=== PATIENT | female | born 1940 | race Caucasian/White ===

== ENCOUNTER 2016-11-02 16:23 | Outpatient (CLI) | payer MEDICARE, OTHER ==
[2016-02-26 04:58] VITALS: BP 104/52
== END 2016-11-02 16:24 ==
LOC: LABRHC 16:23
PROVIDERS: ATTEND Family Medicine
DX: R30.0 Dysuria (principal)
CPT/HCPCS: 87088

== ENCOUNTER 2016-11-16 08:21 | Outpatient (CLI) | payer MEDICARE, OTHER ==
[2016-02-26 04:58] VITALS: BP 104/52
== END 2016-11-16 08:30 ==
LOC: OUT 08:21
PROVIDERS: ATTEND General Practice
DX: N32.81 Overactive bladder (principal)
CPT/HCPCS: G0463

== ENCOUNTER 2016-11-30 08:39 | Outpatient (CLI) | payer MEDICARE, OTHER ==
[2016-02-26 04:58] VITALS: BP 104/52
== END 2016-11-30 08:40 ==
LOC: OUT 08:39
PROVIDERS: ATTEND General Practice
DX: N32.81 Overactive bladder (principal)
CPT/HCPCS: G0463

== ENCOUNTER 2017-01-01 10:30 | Emergency (ER) | payer MEDICARE, OTHER ==
--- NOTE | 2017-01-01 10:47 | ED Physician Documentation ---
Upper Extremity Problem - HISTORIAN Historian: patient - HPI Chief Complaint: Upper Extremity Injury Location: L shoulder, L arm Onset: hours (0200) Timing: still present, better Recent Injury: No Where: home Severity: moderate Associated Symptoms: denies: fever, chills, sweating Exacerbated By: other (movement, eternal rotation, abd) Further Comments: yes (Patient lost her balance in bathroom at about 0200 this AM, fell and hit her upper arm against the door. No LOC noted. Has been having some pain in the arm since that time. No echchymosis or swelling noted.) - ROS CONST: no problems - PAST HX Past History: other (DM type 2, s/pCVA, Seizure disorder, PVD, hyperlipidemia, ) Surgeries/Procedures: other (fundiplasty, AP b;ader reapir, BERNY) Allergies/Adverse Reactions: Allergies Allergy/AdvReac Type Severity Reaction Status Date / Time Sulfa (Sulfonamide Allergy Unknown Localized Verified 01/01/17 10:45 Antibiotics) Redness guaifenesin [From Entex LA] Allergy Verified 01/01/17 10:45 phenylephrine HCl Allergy Verified 01/01/17 10:45 [From Entex LA] phenylpropanolamine HCl Allergy Verified 01/01/17 10:45 [From Entex LA] Home Medications: Ambulatory Orders Medication Instructions Recorded Cholecalciferol [Vitamin D-3] 1,000 unit PO QD 04/27/14 Docusate Sodium [Colace] 100 mg PO BID 02/16/16 Pantoprazole Sodium [Protonix] 1 tab PO DAILY 02/16/16 Aspirin [Palmer] 325 mg PO DAILY 01/01/17 Metoclopramide HCl [Reglan] 5 mg PO ACHS 01/01/17 - SOCIAL HX Smoking History: non-smoker Alcohol Use: none Drug Use: none - FAMILY HX Family History: no significant history - VITAL SIGNS Vital Signs: Vital Signs Temp Pulse Resp BP Pulse Ox 98.1 F 98 H 15 151/78 95 01/01/17 11:46 01/01/17 11:46 01/01/17 11:46 01/01/17 11:46 01/01/17 11:46 - REVIEWED ASSESSMENTS Nursing Assessment Reviewed: Yes Vitals Reviewed: Yes ED Results Lab/Radiology - Radiology Radiology Impressions: Impacted greater tuberosity fracture to the left shoulder area. - Orders Orders: ED Orders Category Date Time Status Shoulder Immobilizer 1T Care 01/01/17 11:37 Active XR HUMERUS [HUMERUS 2 VIEWS OR MORE] [RAD] Stat Exams 01/01/17 Taken Upper Extremity Problem - EXAM General Appearance: alert, mild distress Shoulder Exam: limited ROM (pain with external rotation, abduction) Wrist Exam: normal inspection Hand Exam: normal inspection DTR - Upper Extremity: bicep (R): 2+, bicep (L): 2+, tricep (R): 2+, tricep (L) : 2+ Neuro/Tendon: normal sensation, normal motor functions CVS: reg rate & rhythm, heart sounds normal, equal pulses, no murmur Vascular: no vascular compromise Peripheral: sensation nml, motor nml Central: oriented X3, CN's nml as tested, motor nml, sensation nml Respiratory: no resp. distress, breath sounds nml, distinct pain on movement Discharge Clincal Impression: Fracture of greater tuberosity of humerus Qualifiers: Encounter type: initial encounter Fracture type: closed Fracture alignment: nondisplaced Laterality: right Qualified Code(s): S42.254A - Nondisplaced fracture of greater tuberosity of right humerus, initial encounter for closed fracture Referrals: Frank Colin MD [Primary Care Provider] - 2 Days Additional Instructions: Wear shoulder immobilizer for one week. You may take it off to bath. Make an appointment to see Dr Colin on January 17. Take Tylenol or Aspirin as needed for pain. Use a cane to walk with. Home Medications: Ambulatory Orders Cholecalciferol [Vitamin D-3] 1,000 unit PO QD 04/27/14 Docusate Sodium [Colace] 100 mg PO BID 02/16/16 Pantoprazole Sodium [Protonix] 1 tab PO DAILY 02/16/16 Aspirin [Palmer] 325 mg PO DAILY 01/01/17 Metoclopramide HCl [Reglan] 5 mg PO ACHS 01/01/17 Condition: Stable Disposition: 01 HOME, SELF-CARE Decision to Admit: NO Date of Decison to Admit: 01/01/17 Decision Time: 11:17
[2017-01-01 10:54] VITALS: BP 151/78
--- NOTE | 2017-01-02 07:20 | Diagnostic Imaging Report ---
ARLETTE ZHU~ [facility] [address] [facility] [address] 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 ~Pain. Findings: ~Examination left humerus in AP view with internal and external rotation demonstrates an impacted fracture of the greater tuberosity. ~There is displacement of fracture fragment by 1-2 mm. ~The bony structures are otherwise intact. ~Acromioclavicular glenohumeral relationships are anatomic. Impression: 1. ~Impacted fracture of the greater tuberosity. ~ Electronically signed on Jan 01, 2017 11:18:07 AM HERMANN by: Ravindra THOMAS
== END 2017-01-01 11:46 | disposition home or self-care (01) ==
LOC: ED 10:30
DX: S42.254A Nondisplaced fracture of greater tuberosity of right humerus, initial encounter for closed fracture (principal); W19.XXXA Unspecified fall, initial encounter; Y93.9 Activity, unspecified; Y99.9 Unspecified external cause status
CPT/HCPCS: 73060; 99283

== ENCOUNTER 2017-01-17 12:34 | Outpatient (CLI) | payer MEDICARE, OTHER ==
--- NOTE | 2017-01-17 14:25 | Diagnostic Imaging Report ---
[facility] [address] [facility] [address] Report Submission Date: Jan 17, 2017 2:18:45 PM CDT Patient Study Name: JAMEL RAMIREZ Date: Jan 17, 2017 12:39:45 PM CDT Modality Type: CR Gender: F Description: UPPER EXTREMITY : 42 Institution: [facility] Physician ARLETTE ZHU - PRATIK Left humerus -two views CLINICAL HISTORY: Follow-up fracture. FINDINGS: Examination left humerus in AP view with internal and external rotation demonstrates minimally displaced impacted fracture of the greater tuberosity. Fracture line is slightly less well visualized. There is no new fracture. IMPRESSION: Minimally impacted fracture of the greater tuberosity without significant change. Electronically signed on Jan 17, 2017 2:18:45 PM CDT by: Ravindra THOMAS
== END 2017-01-17 12:35 ==
LOC: RAD 12:34
PROVIDERS: ATTEND Family Medicine
DX: S42.252D Displaced fracture of greater tuberosity of left humerus, subsequent encounter for fracture with routine healing (principal); X58.XXXD Exposure to other specified factors, subsequent encounter; Y93.9 Activity, unspecified; Y99.9 Unspecified external cause status
CPT/HCPCS: 73060

== ENCOUNTER 2017-02-09 11:41 | Outpatient (CLI) | payer MEDICARE, OTHER | END 2017-02-09 11:42 | LOC: LAB 11:41 | PROVIDERS: ATTEND Family Medicine | DX: E11.9 Type 2 diabetes mellitus without complications (principal) | CPT/HCPCS: 36415; 83036 ==

== ENCOUNTER 2017-04-05 08:49 | Outpatient (CLI) | payer MEDICARE, OTHER | END 2017-04-05 08:50 | LOC: OUT 08:49 | PROVIDERS: ATTEND General Practice | DX: N32.81 Overactive bladder (principal); R32 Unspecified urinary incontinence | CPT/HCPCS: G0463 ==

== ENCOUNTER 2017-06-29 16:02 | Outpatient (CLI) | payer MEDICARE, OTHER ==
--- NOTE | 2017-06-30 09:33 | OP Clinic Progress Note ---
REASON FOR VISIT: This 76-year-old lady is seen accompanied by her . She has had left ear drainage as the initial symptom or issue. The patient, by history, has had a perforation of the left ear since . She wears hearing aids in both ears. The right ear has hard, packed cerumen and skin. Under the microscope, I debrided and cleaned this rather assiduously down to an area right on the eardrum where there is granulation tissue. I placed Nystatin lotion in the ear with instructions for the right ear to have that left in for 3 days. In the left ear, a culture is taken. Progressive suction and debridement of the ear shows the absence of the eardrum in the posterior, at least a third of the eardrum. The exact anatomy is still distorted, as there is significant leukoplakia and thickening and significant dysplasia. I also removed a granuloma from the posterior superior quadrant. Additional squamous cholesteatoma flecks were also removed. Ciprodex drops were lavaged twice and suctioned clean. PLAN: An effort was made to progressively clean both ears. I will see her back in a week. Again, both ear canals were tightly impacted. 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 She will try to leave the hearing aids out for 1 week. I have refrained from using an antibiotic at this point as a culture was taken and it should be back in about a week. The ears will be re-cleaned and debrided. cc: Dr. Frank THOMAS
== END 2017-06-29 16:03 ==
LOC: ENT 16:02
PROVIDERS: ATTEND Otolaryngology
DX: H61.23 Impacted cerumen, bilateral (principal); H72.93 Unspecified perforation of tympanic membrane, bilateral
CPT/HCPCS: 69210; 87070; 87186; G0463

== ENCOUNTER 2017-07-06 13:55 | Outpatient (CLI) | payer MEDICARE, OTHER ==
--- NOTE | 2017-07-07 11:11 | OP Clinic Progress Note ---
REASON FOR VISIT: Katarzyna is seen in follow up after about a week of her severe bilateral otitis externa and otitis media, hearing loss, and use of hearing aids. I did a culture of the drainage from the large right ear perforation and cholesteatoma last week. It is growing E. Coli. The patient is not sure what her allergies are to antibiotics and she thinks it may be sulfa. I will use one of the oral antibiotics that she is not allergic to. It is also sensitive to Augmentin, so I have given her 875 mg p.o. twice a day for a week with a renewal if she is not having any GI problems. I debrided and cleaned the ears under the microscope in the clinic today bilaterally. 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 PLAN: There definitely is improvement, although in both ear canals the general disease condition still remains bad. It simply is not as horrible as it was last week. I placed Nystatin antifungal lotion in both ears. I have to work on a type of drop to try for the ears. With the perforation in the left ear, there is significant difficulty finding a good antibiotic. The E. Coli is resistant to the fluoroquinolones. At this point, I will have her take the Augmentin. Again, I have debrided the ears and put antifungal medicine in both ear canals and I will see her back in 2 weeks. It will be a long-term process, but there is at least some degree of improvement. cc: Dr. Frank THOMAS
== END 2017-07-06 13:56 ==
LOC: ENT 13:55
PROVIDERS: ATTEND Otolaryngology
DX: H72.92 Unspecified perforation of tympanic membrane, left ear (principal); H61.20 Impacted cerumen, unspecified ear
CPT/HCPCS: 69210; G0463

== ENCOUNTER 2017-07-06 20:56 | Emergency (ER) | payer MEDICARE, OTHER ==
[2017-07-06] MEDS: 0.9 % SODIUM CHLORIDE 1,000 ML IV SCH (22:00)
[2017-07-06] MEDS ORDERED: 0.9 % SODIUM CHLORIDE 1,000 ML IV SCH (22:00)
[2017-07-06] MEDS ORDERED: 0.9 % SODIUM CHLORIDE 1,000 ML IV ONE (22:06)
[2017-07-06 22:12] LABS: BASOPHILS % 1.6 (0.0-1.5); EOSINOPHILS % 3.2 % (0.0-6.8); MEAN CORPUSCULAR HEMOGLOBIN 31.8 pg (28.0-34.0); NEUTROPHILS # 4.4 # k/uL (1.4-7.7)
[2017-07-06 22:51] LABS: eGFR (African) > 60; eGFR (Non-African) > 60
--- NOTE | 2017-07-06 22:51 | ED Physician Documentation ---
Female Urogenital Problems - HISTORIAN Historian: patient, spouse - HPI Stated Complaint: unable to urinate Chief Complaint: Female Urogenital Problems Additional Information: unableto urinate [id number]. pt thinks relatedkto augmentin which ENTDR gave her this am. she took one cap prior to the retention. pt able to urinate 50 cc on ed arrival high specific gracvity w/2plus blood and 2plus ketone sp gr 1025 both spec Onset: hours (1630) Severity: moderate Location of Pain: denies: abdominal pain, pelvic pain - Associated Symptoms Urinary Symptoms: burning w/ urination (very minimal if at all). denies: blood in urine, frequent urination, discomfort w/ urination Discharge: denies: vaginal discharge - ROS CONST: none GI/: other (pt thinks has drankk plenty water). denies: nausea, vomiting, decreased appetite CVS/RESP: none. denies: chest pain, shortness of breath, cough EYES/ENT: denies: problems with vision NEURO/PSYCH: denies: headache, anxiety, depression MS/SKIN/LYMPH: none. denies: leg swelling, rash, swollen glands, recent injury , ankle swelling (dm hi chol gerd) - PAST HX Surgeries/Procedures: hysterectomy Allergies/Adverse Reactions: Allergies Allergy/AdvReac Type Severity Reaction Status Date / Time Sulfa (Sulfonamide Allergy Unknown Localized Verified 07/06/17 21:10 Antibiotics) Redness guaifenesin [From Entex LA] Allergy Verified 07/06/17 21:10 phenylephrine HCl Allergy Verified 07/06/17 21:10 [From Entex LA] phenylpropanolamine HCl Allergy Verified 07/06/17 21:10 [From Entex LA] Home Medications: Ambulatory Orders Medication Instructions Recorded Cholecalciferol [Vitamin D-3] 1,000 unit PO QD 04/27/14 Docusate Sodium [Colace] 100 mg PO BID 02/16/16 Pantoprazole Sodium [Protonix] 1 tab PO DAILY 02/16/16 Aspirin [Palmer] 325 mg PO DAILY 01/01/17 Metoclopramide HCl [Reglan] 5 mg PO ACHS 01/01/17 - SOCIAL HX Smoking History: non-smoker Alcohol Use: none Drug Use: none - FAMILY HX Family History: none - VITAL SIGNS Vital Signs: Vital Signs Temp Pulse Resp BP Pulse Ox 98.2 F 97 H 16 131/71 98 07/06/17 21:00 07/06/17 21:00 07/06/17 21:00 07/06/17 21:00 07/06/17 21:00 - REVIEWED ASSESSMENTS Nursing Assessment Reviewed: Yes Vitals Reviewed: Yes ED Results Lab/Radiology - Lab Results Lab Results: Lab Results 07/06/17 22:02 WBC 7.20 K/ul K/ul (4.00-12.00) RBC 3.77 M/ul L M/ul (3.90-5.20) Hgb 12.0 g/dL g/dL (12.0-16.0) Hct 35.0 % % (34.5-46.5) MCV 93.0 fl fl (80.0-100.0) MCH 31.8 pg pg (28.0-34.0) MCHC 34.2 g/dL g/dL (30.0-36.0) RDW 13.0 % % (11.3-14.3) Plt Count 206 K/mm3 K/mm3 (130-400) Neut % (Auto) 62.2 % % (39.0-79.0) Lymph % (Auto) 26.8 % % (16.0-50.0) Ingham % (Auto) 4.0 % % (0.0-11.0) Eos % (Auto) 3.2 % % (0.0-6.8) Baso % (Auto) 1.6 H (0.0-1.5) Neut # (Auto) 4.4 # k/uL # k/uL (1.4-7.7) Lymph # (Auto) 1.9 # k/uL # k/uL (0.6-4.0) Ingham # (Auto) 0.3 # k/uL # k/uL (0.0-0.9) Eos # (Auto) 0.2 # k/uL # k/uL (0.0-0.6) Baso # (Auto) 0.1 # k/uL # k/uL (0.0-0.5) Reactive Lymphs % 2.2 % % (0.0-5.0) Reactive Lymphs # 0.2 # k/uL # k/uL (0.0-0.8) - Orders Orders: ED Orders Category Date Time Status Place IV Lock 1T Care 07/06/17 21:55 Active CBC/PLATELET/DIFF Routine Lab 07/06/17 22:02 Completed CMP Routine Lab 07/06/17 22:02 Received URINALYSIS Routine Lab 07/06/17 Ordered URINALYSIS Routine Lab 07/06/17 21:20 Ordered 0.9 % Sodium Chloride [Normal Saline] 1,000 ml Med 07/06/17 22:00 Ordered IV Q1 0.9 % Sodium Chloride [Normal Saline] 1,000 ml Med 07/06/17 22:00 Discontinued IV Q10H Female Urogenital Problems - EXAM General Appearance: mild distress EENT: eye inspection normal Neck: nml inspection. No: lymphadenopathy, thyromegaly Respiratory: no resp. distress, breath sounds nml CVS: reg rate & rhythm, heart sounds normal Abdomen: no distention, other (no suprapubic tenderness) Back: non-tender, painless ROM Skin: color nml, no rash, warm,dry. No: diaphoresis, pallor Extremities: non-tender, normal range of motion, no edema Neuro: oriented X3, motor nml, sensation nml, mood/affect nml Discharge Referrals: Frank Colin MD [Primary Care Provider] - 2 Days
[2017-07-07 00:10] VITALS: BP 110/74
[2017-07-07 05:29] LABS: COLOR,URINE YELLOW (YELLOW)
[2017-07-07 05:30] LABS: APPEARANCE,URINE CLEAR (CLEAR); OCCULT BLOOD,URINE 1+ (NEGATIVE); UROBILINOGEN URINE 0.2 Eu (0.2-1.0)
== END 2017-07-06 23:45 | disposition home or self-care (01) ==
LOC: ED 20:56
DX: R33.9 Retention of urine, unspecified (principal)
CPT/HCPCS: 80053; 81002; 85025; 96360; 99283; J7030; S1016

== ENCOUNTER 2017-07-20 14:07 | Outpatient (CLI) | payer MEDICARE, OTHER ==
[2017-07-07 00:10] VITALS: BP 110/74
--- NOTE | 2017-07-21 15:07 | OP Clinic Progress Note ---
REASON FOR VISIT: Katarzyna is seen in follow up of bilateral otitis externa and left perforated eardrum and small cholestatic cholesteatoma. Cultures show E. Coli and she has taken Augmentin 875 mg twice a day for about a week. This has improved a lot of the drainage of that left ear. It looks moderately dry. PLAN: I have asked her to take the Augmentin again for another 1 week. She has not had any problems with diarrhea or GI upset or any other type of negative reaction associated with the Augmentin. In regards to the right ear, the severe otitis externa with bacterial and fungal infection is markedly significantly improved. I debrided and cleaned under the microscope in the office. There is no perforation of the eardrum. On a trial basis, I irrigated her ear with 91% alcohol and there was no stinging. As she uses hearing aids in both ears, for the right ear only and not the left ear, I have recommended 91% alcohol drops twice a week. Her is in attendance and the patient recognizes and was able to repeat the instructions I have given. They are clear to put the alcohol drops in the right ear and not in the left ear. Take Augmentin 875 mg twice a day for another week. I will see her back in the clinic in about another month to see if we maintained the progress that we have made thus far. Additionally, I would like to use some drops for the left ear after the Augmentin is finished. The bacterial infection is resistant to the ciprofloxacin and so we will not use it. Gentamicin is sensitive but that obviously, as a aminoglycoside, would cause a neurotoxicity to the inner ear. I am working on another drop potentially, a sulfa-type of ophthalmic drop, for the left ear. cc: Dr. Frank THOMAS
== END 2017-07-20 14:10 ==
LOC: ENT 14:07
PROVIDERS: ATTEND Otolaryngology
DX: H60.13 Cellulitis of external ear, bilateral (principal)
CPT/HCPCS: 69210; G0463

== ENCOUNTER 2017-08-17 13:28 | Outpatient (CLI) | payer MEDICARE, OTHER ==
[2017-07-07 00:10] VITALS: BP 110/74
--- NOTE | 2017-08-18 10:17 | OP Clinic Progress Note ---
REASON FOR VISIT: Katarzyna is seen in sequential follow up accompanied by her . In general, she notices that her ears are improving with less drainage and irritation and generally some degree of improved hearing. Visually, the right ear has an intact although significantly atelectatic eardrum with a prosthesis that is protruding up in the posterior superior quadrant. A lot of the infection that was brown, gummy, and sticky is improved. She is putting alcohol drops in that right ear. Under the microscope, I debrided, picked, and cleaned that ear again. I also placed alcohol drops in it. There was no stinging whatsoever. The right ear has overall improved with the micro-cleanings here in the clinic. Had a bit of impasse regarding getting antibiotic drops in it. She cannot use the aminoglycoside drops because of ototoxicity and perforated drum and cholesteatoma. She is allergic to sulfa drops. The ciprofloxacin is sensitive to the bacteria but she is allergic to it. PLAN: I plan to try to see if we can get some topical treatment that she can use at home to get gain. Nevertheless, today I went ahead and debrided and cleaned the ear and progressively, there is less disease. I will see her back in about 5 weeks and repeat. cc: Dr. Frank THOMAS
== END 2017-08-17 13:30 ==
LOC: ENT 13:28
PROVIDERS: ATTEND Otolaryngology
DX: H66.93 Otitis media, unspecified, bilateral (principal)
CPT/HCPCS: 69220

== ENCOUNTER 2017-09-21 13:40 | Outpatient (CLI) | payer MEDICARE, OTHER ==
[2017-07-07 00:10] VITALS: BP 110/74
== END 2017-09-21 13:42 ==
LOC: LAB 13:40
PROVIDERS: ATTEND Family Medicine
DX: R30.0 Dysuria (principal)
CPT/HCPCS: 87086; 87186

== ENCOUNTER 2017-09-28 13:33 | Outpatient (CLI) | payer MEDICARE, OTHER ==
[2017-07-07 00:10] VITALS: BP 110/74
--- NOTE | 2017-09-29 10:48 | OP Clinic Progress Note ---
REASON FOR VISIT: Katarzyna is seen with her bilateral severe hearing loss, otitis media, and cholesteatomas. The right ear has gotten at least moderately improved with the repeated dbridements and removal of cholesteatomatous debris. It is not actively infected. She uses a hearing aid in the right ear. I re-debrided and cleaned squamous epithelium and keratinization in a variety of spots superiorly , inferiorly, and posteriorly. Her apparent Hydroxyapatite-type of prosthesis is still covered with an eardrum and there is no mucosal drainage. The left ear is to some degree similar with the cavitation. There is a perforation. She does have drainage that is brownish and yellowish coming from that ear. I cultured this again today. Previously it has grown E. Coli. I also suctioned and cleaned cholesteatomatous debris from in and around a loose wire prosthesis that is totally exposed and it has no eardrum over it, just squamous debris retracted back in the attic and sinus tympani recesses. Again, this was debrided and cleaned. I re-cultured it today. PLAN: I will see her back in 2 weeks again to check on the second culture and probably start her on Augmentin or Ceftin and re-clean her ear. cc: Dr. Frank THOMAS
== END 2017-09-28 13:34 ==
LOC: ENT 13:33
PROVIDERS: ATTEND Otolaryngology
DX: H71.93 Unspecified cholesteatoma, bilateral (principal); H66.93 Otitis media, unspecified, bilateral; H91.8X3 Other specified hearing loss, bilateral
CPT/HCPCS: 87070; 87186; 87205; 88304; G0463

== ENCOUNTER 2017-10-12 14:13 | Outpatient (CLI) | payer MEDICARE, OTHER ==
[2017-07-07 00:10] VITALS: BP 110/74
--- NOTE | 2017-10-13 10:15 | OP Clinic Progress Note ---
REASON FOR VISIT: Katarzyna has been seen about every 2 weeks for debridement and cleaning of both ears. There is slow progressive improvement. Today again, I re-debrided both ears. There is less squamous debris and epithelium in the right ear with the cavities in general being improved. There is less scabbing and crusting. There is less keratosis. In the left ear, there is less drainage from the ear. This had grown E. Coli. There is less hard debris in the ear. This was again debrided and cleaned. I cleaned up enough in the deep sulcus in the posterior and superior quadrant where I finally can see a Willy wire piston that is lying free. It is not in the oval window at all and it is absolutely not attached. I can see both ends absolutely free. This was not pulled out of any tissue. I simply rolled it up and removed it as a foreign body. PLAN: Again, I re-debrided and cleaned. I placed gentian guillermo along some granular tissue inferiorly in the near total perforation of the eardrum. I cleaned cholesteatoma out of the posterior and superior quadrant. I gave her a course of Augment 875 mg with probiotics for about 10 days and I will see her back in 2 weeks. 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 cc: Dr. Frank THOMAS
== END 2017-10-12 14:14 ==
LOC: ENT 14:13
PROVIDERS: ATTEND Otolaryngology
DX: H60.40 Cholesteatoma of external ear, unspecified ear (principal); L85.9 Epidermal thickening, unspecified; L98.9 Disorder of the skin and subcutaneous tissue, unspecified
CPT/HCPCS: 69200; G0463

== ENCOUNTER 2017-10-26 15:03 | Outpatient (CLI) | payer MEDICARE, OTHER ==
[2017-07-07 00:10] VITALS: BP 110/74
--- NOTE | 2017-10-31 10:46 | OP Clinic Progress Note ---
REASON FOR VISIT: Katarzyna is seen in follow up of bilateral ear cholesteatomas, otitis media, and marked earing loss with use of hearing aids. She has had multiple ear debridements and cleaning. She was given Augmentin last time as per culture results. Overall, both ears are immersion metal cleaner and drier tender naphthalene. They both have significant otitis media with cholesteatomatous invaginations. These have been peeled and cleaned. Inferiorly on the right side, there is some bone loss. I cleaned granulomatous material out of this. This is done repeatedly. Although it has not reached a point where there is no active disease in the ear, both ears are significantly immersion metal cleaner and clearer. Katarzyna feels that the ears are much less bothersome. They are not actively draining. There is much less pain and discomfort. The hearing aids work much better. PLAN: I have not renewed the antibiotic, Augmentin. I will simply see her back in a month and see how much of the progress is able to be maintained or how much fall back there is. cc: Dr. Frank THOMAS
== END 2017-10-26 15:04 ==
LOC: ENT 15:03
PROVIDERS: ATTEND Otolaryngology
DX: H66.93 Otitis media, unspecified, bilateral (principal)
CPT/HCPCS: G0463

== ENCOUNTER 2017-11-23 14:17 | Outpatient (CLI) | payer MEDICARE, OTHER ==
[2017-07-07 00:10] VITALS: BP 110/74
--- NOTE | 2017-11-24 10:02 | OP Clinic Progress Note ---
REASON FOR VISIT: Patient has been seen repeatedly every 2 to 4 weeks in the clinic where I debride and clean her ears. She has had cholesteatomas changes and erosive desquamative changes of the ear canals. She has had stapes surgery and this has failed. She has a large perforation of the right ear that grew bacteria which she has taken antibiotics and has been improving. Overall, she has better hearing, less drainage, less pain and discomfort. Nevertheless, she still remains with more of an otitis externa and some bony cavitations in the right ear. After debriding and cleaning, I put 91% alcohol in the ear and she did not have any pain with it. For the right ear, I have asked her to put daily 6 to 10 drops of 91% alcohol in that right ear. I emphasized not putting it in the left ear. The left ear, again, is much improved with not really bad drainage. She does have a large perforation of the eardrum and there is squamous pockets in and around where the incus and stapes were. I debrided and cleaned these. The last time I put Gentian Angie in it. Overall, this too has improved. There is less hard crusty, gummy biofilm that has built up. Again, there is gentle improvement. Unfortunately, the endpoint of this is difficult to determine. I do not believe either ear will get totally healthy. I am concentrating and thinking about the right ear. Hopefully, maintenance with alcohol may help to keep this healthier for significantly longer periods of time. The left ear, we simply have to wait to see how much progress we get over time. PLAN: I will see her back in about 2 months. cc: Dr. Frank THOMAS
== END 2017-11-23 14:18 ==
LOC: ENT 14:17
PROVIDERS: ATTEND Otolaryngology
DX: H60.93 Unspecified otitis externa, bilateral (principal)
CPT/HCPCS: G0463

== ENCOUNTER 2017-12-07 12:59 | Outpatient (CLI) | payer MEDICARE, OTHER ==
[2017-07-07 00:10] VITALS: BP 110/74
--- NOTE | 2017-12-09 09:17 | OP Clinic Progress Note ---
REASON FOR VISIT: This is a 77-year-old lady accompanied by her . She has been seen sequentially in the clinic numerous times for bilateral ear canal and otitis media problems. She wears hearing aids in both ears. The right ear has severe otitis externa and desquamative problems of the canal and the eardrum which is markedly retracted. It has gotten to the point where she has been using alcohol drops 91% in that right ear once a day. Under otoscopy, I have debrided and cleaned the ear. It is significantly and markedly seed cleaner. There is no squamous debris. There is no discharge. In the left ear, it also is markedly improved. She had taken an antibiotic and the liquid drainage has stopped. The squamous debris that was picked and cleaned out of the ear is much less. I removed a small spicule of bone down in a deep cavity in the inferior part of the canal right next to the neotympanum, which also is markedly retracted. Again, there is a perforation. Again, the stapes prosthesis had been removed several months ago had been lying fallow. I cleaned squamous debris from under the lip of the superior aspect of the tympanum remnant. PLAN: The patient has been seen rather frequently before this. I think things have improved enough that I am going to re-clean the ear at a 3-month space of time, which is a marked improvement, and hopefully this will be tolerated. Patient and her recognize a marked improvement of both ears, both in hearing, general debris, no discharge, and discomfort. cc: Dr. Frank THOMAS
== END 2017-12-07 13:00 ==
LOC: ENT 12:59
PROVIDERS: ATTEND Otolaryngology
DX: H60.93 Unspecified otitis externa, bilateral (principal)
CPT/HCPCS: 69220; G0463

== ENCOUNTER 2018-01-11 10:42 | Outpatient (CLI) | payer MEDICARE, OTHER ==
[2017-07-07 00:10] VITALS: BP 110/74
== END 2018-01-11 10:43 ==
LOC: LABRHC 10:42
PROVIDERS: ATTEND Family Medicine
DX: N30.01 Acute cystitis with hematuria (principal)
CPT/HCPCS: 87086

== ENCOUNTER 2018-03-01 13:30 | Outpatient (CLI) | payer MEDICARE, OTHER ==
[2017-07-07 00:10] VITALS: BP 110/74
--- NOTE | 2018-03-02 12:29 | OP Clinic Progress Note ---
REASON FOR VISIT: Katarzyna is seen in follow up of intermittent debridements and cleanings of bilateral severe otitis media, cholesteatomas, and squamous dyskeratosis of the ears. Overall, she has done dramatically better than when we started. Progressive cleanings have improved this issue. Under the microscope, I re-debrided and cleaned both ears. There is much less squamous dyskeratosis of the canals and variety of different pockets in both ears. Theses are cleaned. PLAN: I will simply see her back in a little bit longer interval at 4 months. cc: Dr. Frank THOMAS
== END 2018-03-01 13:32 ==
LOC: ENT 13:30
PROVIDERS: ATTEND Otolaryngology
DX: H66.93 Otitis media, unspecified, bilateral (principal)
CPT/HCPCS: 69220; G0463

== ENCOUNTER 2018-06-28 14:04 | Outpatient (CLI) | payer MEDICARE, OTHER ==
[2017-07-07 00:10] VITALS: BP 110/74
--- NOTE | 2018-06-30 14:43 | OP Clinic Progress Note ---
REASON FOR VISIT: This 77-year-old lady is seen accompanied by her . She has had ears as described in numerous clinic notes. 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 She has squamous debris on the ear canals that is keratotic and I cleaned that. In the right ear, the prosthesis is covered. PLAN: Again, there is squamous debris of both the ear canal and numerous nooks and crannies, and I debrided and cleaned this. Overall, the ears have not drained. She has not had purulence. With a significant amount of debris, probably about every 4 months cleaning is appropriate. cc: Dr. Frank THOMAS
== END 2018-06-28 14:06 ==
LOC: ENT 14:04
PROVIDERS: ATTEND Otolaryngology
DX: H60.93 Unspecified otitis externa, bilateral (principal); H72.93 Unspecified perforation of tympanic membrane, bilateral
CPT/HCPCS: 69210; G0463

== ENCOUNTER 2018-07-26 11:17 | Outpatient (CLI) | payer MEDICARE, OTHER ==
[2017-07-07 00:10] VITALS: BP 110/74
== END 2018-07-26 11:19 ==
LOC: LABRHC 11:17
PROVIDERS: ATTEND Physician Assistant
DX: R30.0 Dysuria (principal)
CPT/HCPCS: 87086

== ENCOUNTER 2018-11-22 09:57 | Outpatient (CLI) | payer OTHER ==
[2017-07-07 00:10] VITALS: BP 110/74
[2018-11-22 10:30] LABS: BASOPHILS % 0.5 (0.0-1.5); EOSINOPHILS % 3.5 % (0.0-6.8); MEAN CORPUSCULAR HEMOGLOBIN 31.8 pg (28.0-34.0); NEUTROPHILS # 6.4 # k/uL (1.4-7.7)
[2018-11-22 10:50] LABS: eGFR (Non-African) > 60
== END 2018-11-22 10:05 ==
LOC: LAB 09:57
PROVIDERS: ATTEND Family Medicine
DX: D64.9 Anemia, unspecified (principal); E78.5 Hyperlipidemia, unspecified
CPT/HCPCS: 36415; 80053; 80061; 85025

== ENCOUNTER 2019-08-03 15:00 | Inpatient (IN) | payer OTHER ==
[2019-08-03] MEDS ORDERED: LevoFLOXacin 750 MG/150 ML PIGGYBACK IV ONE (16:00)
[2019-08-03] MEDS ORDERED: NORMAL SALINE 1,000 ML IV.SOLN IV ONE (16:00)
[2019-08-07 21:02] VITALS: BP 123/67
[2019-08-09 12:20] LABS: APPEARANCE,URINE CLEAR (CLEAR); COLOR,URINE YELLOW (YELLOW)
[2019-08-09 12:21] LABS: OCCULT BLOOD,URINE 2+ (NEGATIVE); UROBILINOGEN URINE 0.2 Eu (0.2-1.0)
[2019-08-09 14:42] LABS: BASOPHILS % 0.4 % (0.0-1.5)
[2019-08-09 14:43] LABS: NEUTROPHILS # 4.3 # k/uL (1.4-7.7)
[2019-08-10 07:30] LABS: BASOPHILS % 0.4 % (0.0-1.5); NEUTROPHILS # 7.3 # k/uL (1.4-7.7); eGFR (Non-African) > 60
[2019-08-10 07:33] LABS: BASOPHILS % 0.4 % (0.0-1.5); NEUTROPHILS # 10.4 # k/uL (1.4-7.7); eGFR (Non-African) > 60
--- NOTE | 2019-08-27 14:32 | Diagnostic Imaging Report ---
DINESH MARTINEZ [facility] [address] [facility] [address] [place], [place]. [address] Report Submission Date: Aug 03, 2019 3:58:26 PM CDT Patient Study Name: JAMEL RAMIREZ Date: Aug 03, 2019 3:33:05 PM CDT Modality Type: CT\SR Gender: F Description: CT HEAD W/O : 41 Institution: [facility] Physician: DINESH MARTINEZ Examination: CT head without contrast History: Fall Comparison exam: None available Technique: Noncontrast head CT protocol. Findings: Ventricles and sulci are prominent. Cerebrocerebellar parenchyma demonstrates periventricular low attenuation consistent with small vessel disease. Large area of low attenuation involving the right parietal/occipital lobes. No evidence for parenchymal hemorrhage. No evidence for mass or mass effect. No midline shift. No extra axial fluid collections. Partial visualization of the paranasal sinuses, mastoid air cells, orbits, skull and scalp without gross irregularity. Impression: Advanced age related changes. 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 No acute parenchymal process. No hemorrhage. Electronically signed on Aug 03, 2019 3:58:26 PM CDT by: Artur THOMAS
--- NOTE | 2019-08-27 14:35 | Diagnostic Imaging Report ---
DINESH MARTINEZ [facility] [address] [facility].[address] [address] Report Submission Date: Aug 03, 2019 4:38:43 PM CDT Patient Study Name: JAMEL RAMIREZ Date: Aug 03, 2019 3:45:21 PM CDT Modality Type: DX Gender: F Description: ELBOW 2 VIEWS : 41 Institution: [facility] Physician: DINESH MARTINEZ Examination: Plain film left elbow History: Fall Comparison exams: None provided Findings: 2 views of the left elbow demonstrate normal cortical margins. No fracture. No dislocation. Radial head is within normal limits. No joint effusion Impression: No acute osseous abnormality. Electronically signed on Aug 03, 2019 4:38:43 PM CDT by: Artur THOMAS
--- NOTE | 2019-08-27 14:36 | Diagnostic Imaging Report ---
DINESH MARTINEZ [facility] [address] [facility].[address] [address] Report Submission Date: Aug 03, 2019 4:45:23 PM CDT Patient Study Name: JAMEL RAMIREZ Date: Aug 03, 2019 3:31:36 PM CDT Modality Type: DX Gender: F Description: BILAT TIB/FIB 2 VIEW : 41 Institution: [facility] Physician: DINESH MARTINEZ Examination: Plain film tibia/fibula bilateral History: FALL TODAY Comparison exams: None available Findings: 2 views of the right and left tibia fibula demonstrates normal cortical margins. No evidence for fracture line. No soft tissue abnormality. Impression: No acute osseous abnormality. Electronically signed on Aug 03, 2019 4:45:23 PM CDT by: Artur THOMAS
--- NOTE | 2019-08-27 14:38 | Diagnostic Imaging Report ---
DINESH MARTINEZ [facility] [address] [facility].[address] [address] Report Submission Date: Aug 03, 2019 4:51:12 PM CDT Patient Study Name: JAMEL RAMIREZ Date: Aug 03, 2019 3:30:58 PM CDT Modality Type: DX Gender: F Description: CHEST 1VIEW : 41 Institution: [facility] Physician: DINESH MARTINEZ Examination: Portable chest History: Evaluate lungs Comparison exam: None provided. Findings: Single view of the chest demonstrates a normal cardiac silhouette. Tortuous aorta. Diffuse interstitial prominence. Increased interstitial fullness within the right upper lung. No blunting of the costophrenic margins. Osseous structures without cortical irregularity. Impression: Diffuse interstitial prominence with more focal interstitial fullness within the right upper lung: infiltrate/consolidation/lesion. Correlation with older exams recommended to assess chronicity. Electronically signed on Aug 03, 2019 4:51:12 PM CDT by: Artur THOMAS
--- NOTE | 2019-08-27 14:43 | Diagnostic Imaging Report ---
DINESH MARTINEZ [facility] [address] [facility].[address] [address] Report Submission Date: Aug 03, 2019 8:24:45 PM CDT Patient Study Name: JAMEL RAMIREZ Date: Aug 03, 2019 7:05:00 PM CDT Modality Type: DX Gender: F Description: PELVIS AP 1 OR 2 VIEWS : 41 Institution: [facility] Physician: DINESH MARTINEZ AP pelvis History: Left hip pain after fall Findings: Acute left pubic body and left superior pubic ramus fractures are present with minimal displacement. Osteopenia, lower lumbar spondylosis, and atherosclerosis are observed. A right pelvic calcification is observed. Impression: 1. Acute left pubic fractures. 2. Bladder stone versus calcified uterine fibroid. 3. Osteopenia, atherosclerosis, and lower lumbar spondylosis. Electronically signed on Aug 03, 2019 8:24:45 PM CDT by: Toro THOMAS
--- NOTE | 2019-08-27 14:44 | Diagnostic Imaging Report ---
BLESSING JEWELL [facility] [address] [facility].[address] [address] Report Submission Date: Aug 05, 2019 6:51:30 AM CDT Patient Study Name: JAMEL RAMIREZ Date: Aug 05, 2019 6:26:43 AM CDT Modality Type: DX Gender: F Description: CHEST 2VIEW : 41 Institution: [facility] Physician: BLESSING JEWELL Chest, PA and lateral History: Cough Findings: There is no pneumothorax or pleural effusion. Heart size is normal. Diffuse bilateral interstitial infiltrates are present. Since August 03 2019, infiltrates have increased. Impression: Increasing bilateral lung infiltrates. Electronically signed on Aug 05, 2019 6:51:30 AM CDT by: Matty THOMAS
--- NOTE | 2019-08-27 14:46 | Diagnostic Imaging Report ---
BLESSING JEWELL [facility] [address] [facility].[address] [address] Report Submission Date: Aug 05, 2019 6:51:30 AM CDT Patient Study Name: JAMEL RAMIREZ Date: Aug 05, 2019 6:26:43 AM CDT Modality Type: DX Gender: F Description: CHEST 2VIEW : 41 Institution: [facility] Physician: BLESSING JEWELL Chest, PA and lateral History: Cough Findings: There is no pneumothorax or pleural effusion. Heart size is normal. Diffuse bilateral interstitial infiltrates are present. Since August 03 2019, infiltrates have increased. Impression: Increasing bilateral lung infiltrates. Electronically signed on Aug 05, 2019 6:51:30 AM CDT by: Matty THOMAS
--- NOTE | 2019-08-27 14:58 | Diagnostic Imaging Report ---
ARLETTE ZHU [facility] [address] [facility] [address] [place], [place]. [address] Report Submission Date: Aug 06, 2019 1:39:59 PM CDT Patient Study Name: JAMEL RAMIREZ Date: Aug 06, 2019 1:10:52 PM CDT Modality Type: CT\SR Gender: F Description: CT HEAD W/O : 41 Institution: [facility] Physician: ARLETTE ZHU Exam: CT brain without contrast. History: Left-sided weakness. Axial images through the brain are submitted along with sagittal and coronal reformatted images. The examination is somewhat compromised due to motion artifact. The examination is compared to study dated August 03, 2019. In the posterior fossa no acute hemorrhage or mass effect is seen. In the supratentorial regions, no acute hemorrhage or mass effect is seen. The lateral ventricles and surrounding sulci are are again noted be prominent. Large areas of white matter edema in the right parietal lobe is noted which may represent old infarct. More confluent areas of diminished attenuation adjacent to the lateral ventricles indicate small vessel disease. No extra-axial fluid collections are identified. Sclerotic appearance to the mastoid air cells bilaterally is again noted suggestive of chronic mastoiditis. No acute fracture is identified. Impression: Atrophy. Small vessel disease. No acute intracranial process. Old right parietal lobe infarcts. Electronically signed on Aug 06, 2019 1:39:59 PM CDT by: Betito THOMAS
--- NOTE | 2019-08-27 14:59 | Diagnostic Imaging Report ---
ARLETTE ZHU [facility] [address] [facility] [address] [place] [address]. [address] Report Submission Date: Aug 07, 2019 10:01:06 AM CDT Patient Study Name: JAMEL RAMIREZ Date: Aug 07, 2019 8:18:00 AM CDT Modality Type: US Gender: F Description: US ABDOMEN LIMITED : 41 Institution: [facility] Physician: ARLETTE ZHU Exam: Limited abdominal ultrasound. History: Pain. Real-time grayscale imaging of the right upper quadrant is performed. The examination is somewhat compromised due to positioning limitations. The pancreas is not well visualized. The abdominal aorta is of normal caliber and associated with atherosclerotic plaque. The gallbladder is distended with numerous areas of internal echogenicity and distal shadowing noted. The common bile duct measures 3.5 mm in greatest diameter. The visualized right kidney is of normal size and echotexture without hydronephrosis. No ascites or other abdominal mass in the right upper quadrant is noted. Impression: Cholelithiasis. Electronically signed on Aug 07, 2019 10:01:06 AM CDT by: Betito THOMAS
--- NOTE | 2019-10-27 10:00 | Discharge Summary ---
Discharge Summary - Discharge [facility] Admission Date: 08/03/19 (Acute) Discharge Date: 08/07/19 (SNF) Discharge To: Other History of Present Illness: 79-year-old white female who recently bowel. Patient subsequently came to the emergency room was found to have an inferior pubic rami fracture. Patient blood sugar was elevated. Patient denies that she had any seizure also does have a history of seizure disorder. Patient was noted have a mildly elevated troponin. patient was also having some dyspnea. patient was found to have a pneumonia on chest x-ray. Patient was subsequently admitted to acute care for further evaluation and treatment. Condition at Discharge: Stable Home Medications: Ambulatory Orders Medication Instructions Recorded Pantoprazole Sodium [Protonix] 1 tab PO DAILY 02/16/16 Acetaminophen [Tylenol] 650 mg PO Q6H PRN tablet 08/27/19 Citalopram Hydrobromide 10 mg PO DAILY #30 tablet 08/27/19 [Citalopram HBr] Doxycycline [Vibramycin] 100 mg PO BID capsule 10/26/19 Levetiracetam [Keppra] 1 tab PO BID #180 tablet 10/26/19 Consultations this Visit: None Procedures this Visit: None Allergies/Adverse Reactions: Allergies Allergy/AdvReac Type Severity Reaction Status Date / Time Sulfa (Sulfonamide Allergy Unknown Localized Verified 10/24/19 16:11 Antibiotics) Redness guaifenesin [From Entex LA] Allergy Verified 10/24/19 16:11 phenylephrine HCl Allergy Verified 10/24/19 16:11 [From Entex LA] phenylpropanolamine HCl Allergy Verified 10/24/19 16:11 [From Entex LA] Discharge Summary: Patient was started on IV oral antibiotics of Rocephin and azihromycin, and high flow nebulization treatments. Patient breathing status did improve. Patient is troponin level however did increase in did appear that she had an acute myocardial event. At the time to discharge from acute care patient troponin was trending down. Patient did not have any specific chest pain during the event. Patient did have some ambulatory difficulty secondary to her pubic rami fracture. It was felt that the patient would benefit from skilled services and was subsequently admitted to SNF. Patient other medical problems include transient elevation in her liver function tests. Ultrasound did show cholelithiasis but no acute cholecystitis. Patient does have a history of seizure disorder over is not had seizures in some time. Diabetes mellitus has been stable with blood sugars in the mid 100 range. Patient is not had any hypoglycemic episodes. - Final Diagnosis (1) Pneumonia Problems: Breathing is better at this time. Will continue with oral antibiotic and HFN treatment. Right or Left: Right (2) Acute ND Problems: Will continue to monitor troponin. Patient is on ASA and metoprolol at this time. (3) Inferior pubic ramus fracture Problems: PT and OT in SNF setting (4) Cholelithiasis Problems: Stable, no further nausea or vomiting noted (5) Diabetes type 2, controlled Problems: stable, continue oral medication (6) Seizure disorder Problems: stable, will continue Keppra
== END 2019-08-07 18:04 | DRG 193 ==
LOC: ED 15:00 → SOUTH 17:30
PROVIDERS: ADMIT Family Medicine; ATTEND Family Medicine
DX: J18.9 Pneumonia, unspecified organism (principal); I21.9 Acute myocardial infarction, unspecified; S32.592A Other specified fracture of left pubis, initial encounter for closed fracture; Z66 Do not resuscitate; K21.9 Gastro-esophageal reflux disease without esophagitis; J44.9 Chronic obstructive pulmonary disease, unspecified; F32.9 Major depressive disorder, single episode, unspecified; K80.20 Calculus of gallbladder without cholecystitis without obstruction; G40.909 Epilepsy, unspecified, not intractable, without status epilepticus; J84.10 Pulmonary fibrosis, unspecified; E11.65 Type 2 diabetes mellitus with hyperglycemia; Z86.73 Personal history of transient ischemic attack (TIA), and cerebral infarction without residual deficits; Z90.710 Acquired absence of both cervix and uterus; Z79.899 Other long term (current) drug therapy; Z86.718 Personal history of other venous thrombosis and embolism; Z79.02 Long term (current) use of antithrombotics/antiplatelets; Z88.2 Allergy status to sulfonamides; Z88.8 Allergy status to other drugs, medicaments and biological substances; W19.XXXA Unspecified fall, initial encounter; Y92.009 Unspecified place in unspecified non-institutional (private) residence as the place of occurrence of the external cause
CPT/HCPCS: 36415; 51701; 51702; 70450; 71020; 80053; 80177; 81002; 83880; 84484; 85025; 87040; 87086; 93005; 96374; 99218; 99283; 99284; J7030; S1016

== ENCOUNTER 2019-10-24 15:40 | Observation (INO) | payer OTHER ==
--- NOTE | 2019-10-24 15:44 | ED Physician Documentation ---
General Adult - HISTORIAN Historian: patient - HPI Stated Complaint: general weakness Chief Complaint: General Adult Onset: days ago (5) Timing: still present Severity: moderate Further Comments: yes (She states she did fall with assist of her today due to weakness and she is increasingly weak. No fever. NO cough . No other complaints. She is living at home. She does report she is not eating much at all) - ROS CONST: no problems CVS/RESP: none GI/: none MS/SKIN/LYMPH: none - PAST HX Past History: other (DM) Immunizations: UTD Allergies/Adverse Reactions: Allergies Allergy/AdvReac Type Severity Reaction Status Date / Time Sulfa (Sulfonamide Allergy Unknown Localized Verified 10/24/19 16:11 Antibiotics) Redness guaifenesin [From Entex LA] Allergy Verified 10/24/19 16:11 phenylephrine HCl Allergy Verified 10/24/19 16:11 [From Entex LA] phenylpropanolamine HCl Allergy Verified 10/24/19 16:11 [From Entex LA] Home Medications: Ambulatory Orders Medication Instructions Recorded Pantoprazole Sodium [Protonix] 1 tab PO DAILY 02/16/16 Acetaminophen [Tylenol] 650 mg PO Q6H PRN tablet 08/27/19 Citalopram Hydrobromide 10 mg PO DAILY #30 tablet 08/27/19 [Citalopram HBr] - SOCIAL HX Smoking History: non-smoker Alcohol Use: none Drug Use: none - FAMILY HX Family History: No - VITAL SIGNS Vital Signs: Vital Signs Temp Pulse Resp BP Pulse Ox 114/82 08/27/19 10:20 - REVIEWED ASSESSMENTS Nursing Assessment Reviewed: Yes Vitals Reviewed: Yes Progress - Progress Progress: 1720: Discussed case with Dr Hurley will admit obs with social service consult in AM DG General Adult Physical Exam - PHYSICAL EXAM GENERAL APPEARANCE: emaciated EENT: eye inspection normal, pharynx normal, dry mucous membranes NECK: normal inspection RESPIRATORY: no resp distress, chest non-tender, breath sounds normal CVS: reg rate & rhythm, heart sounds normal ABDOMEN: soft, normal bowel sounds, no distension BACK: normal inspection SKIN: warm/dry EXTREMITIES: non-tender NEURO: oriented X3 Discharge Clincal Impression: Weakness, Hypoxia Comments: Admit obs Dr Hurley to set up placement and home oxygen DG Condition: Stable Disposition: ADMITTED INPATIENT Decision to Admit: [id number] Date of Decison to Admit: 10/24/19 Decision Time: 17:25
[2019-10-24] MEDS ORDERED: 0.9 % SODIUM CHLORIDE 1,000 ML IV ONE (15:48)
[2019-10-24 16:15] LABS: BASOPHILS % 0.4 % (0.0-1.5); NEUTROPHILS # 4.6 # k/uL (1.4-7.7)
[2019-10-24 16:22] LABS: eGFR (Non-African) > 60
--- NOTE | 2019-10-24 16:59 | Diagnostic Imaging Report ---
PATIENT MR#: [id number] PATIENT PATIENT NAME: JAMEL RAMIREZ DATE OF : 1940 REFERRING PHYSICIAN: Rossi White EXAM DATE: 10/24/2019 ACCESSION NUMBER: [id number] EXAM DESCRIPTION: CHEST 1VIEW Exam: AP chest. History: Weakness. The examination is compared to study dated August 05, 2019. An elevated right hemidiaphragm is noted. No millicent consolidation or effusions are seen. Heart and m ediastinal contour are normal. Impression: No millicent consolidation or effusion. Read by: Dr. Betito Candelario Transcribed by: Transcribed Date: Electronically signed by: Dr. Betito Candelario Date signed: 10/24/2019 4:58:11 PM
--- NOTE | 2019-10-24 17:02 | Diagnostic Imaging Report ---
PATIENT MR#: [id number] PATIENT PATIENT NAME: JAMEL RAMIREZ DATE OF : 1940 REFERRING PHYSICIAN: Rossi White EXAM DATE: 10/24/2019 ACCESSION NUMBER: [id number] EXAM DESCRIPTION: CT BRAIN W/O CONTRAST Exam: CT brain without contrast. History: Weakness. The examination is compromised due to motion artifact. The surrounding cisterns in the posterior fossa are prominent. The brainstem and cerebellum are norm al attenuation. In the supratentorial regions, no acute hemorrhage or mass effect is identified. The lateral ventricles and surrounding sulci are prominent. Confluent areas of diminished attenuation adjacent to the lateral ventricles in dicate small vessel disease. No extra-axial fluid collections are identified. Increase in density to the mastoid air ce lls bilaterally are noted. No other bony abnormalities are identified. Impression: Atrophy. Small vessel disease. Bilateral mastoiditis. When compared to a study dated August 06, 2019 no significant changes identified. Read by: Dr. Betito Candelario Transcribed by: Transcribed Date: Electronically signed by: Dr. Betito Candelario Date signed: 10/24/2019 5:01:11 PM
[2019-10-24] MEDS ORDERED: ACETAMINOPHEN 325 MG TABLET PO PRN (17:29)
[2019-10-24] MEDS: 0.9 % SODIUM CHLORIDE 1,000 ML IV SCH (17:43)
[2019-10-24 17:51] VITALS: BMI 15.3
[2019-10-24] MEDS ORDERED: ENOXAPARIN SODIUM 30 MG/0.3 ML DISP.SYRIN SQ SCH (18:00)
[2019-10-24 20:38] LABS: APPEARANCE,URINE CLOUDY (CLEAR); COLOR,URINE YELLOW (YELLOW)
[2019-10-24 20:39] LABS: OCCULT BLOOD,URINE TRACE (NEGATIVE)
[2019-10-24] MEDS: levETIRAcetam 500 MG TABLET PO SCH (20:51)
[2019-10-24] MEDS: PRAVASTATIN SODIUM 20 MG TABLET PO SCH (20:52)
[2019-10-25] MEDS: PANTOPRAZOLE SODIUM 40 MG TABLET.DR PO SCH (09:08)
[2019-10-25] MEDS: levETIRAcetam 500 MG TABLET PO SCH ×2 (09:08→20:46)
[2019-10-25] MEDS: CLOPIDOGREL BISULFATE 75 MG TABLET PO SCH (09:08)
[2019-10-25] MEDS: 0.9 % SODIUM CHLORIDE 1,000 ML IV SCH ×2 (09:15→09:52)
[2019-10-25] MEDS: PRAVASTATIN SODIUM 20 MG TABLET PO SCH (20:46)
[2019-10-25] MEDS: DOXYCYCLINE 100 MG CAPSULE PO SCH (20:53)
[2019-10-26] MEDS: 0.9 % SODIUM CHLORIDE 1,000 ML IV SCH ×2 (02:55→05:46)
[2019-10-26] MEDS: PANTOPRAZOLE SODIUM 40 MG TABLET.DR PO SCH (05:46)
--- NOTE | 2019-10-26 07:49 | Discharge Summary ---
Discharge Summary - Discharge Sumary Admission Date: 10/24/19 (Observation) Discharge Date: 10/26/19 (Stephenie Jansen) Discharge To: Retirement History of Present Illness: Patient is a 79-year-old female who presented to the ED after she became weak and had a near fall experience. Patient has been with not able to get her back up. Patient has been getting weaker center last hospitalization and skilled stay for physical and occupational therapy. Patient spouse and family are question whether the patient can return home safely at this time. Patient is not had any fever or chills. Patient denies that she is had any news CVA symptoms. Patient does have a history of a tonic seizures to which is taking seizure medications. Patient denies that she has missed any of her seizure doses patient patient also had a history of a CVA but has recovered fairly well from that. Patient was admitted to observation care so that we could arrange for possible placement at a local fpc. Condition at Discharge: Stable Home Medications: Ambulatory Orders Medication Instructions Recorded Pantoprazole Sodium [Protonix] 1 tab PO DAILY 02/16/16 Acetaminophen [Tylenol] 650 mg PO Q6H PRN tablet 08/27/19 Citalopram Hydrobromide 10 mg PO DAILY #30 tablet 08/27/19 [Citalopram HBr] Doxycycline [Vibramycin] 100 mg PO BID capsule 10/26/19 Consultations this Visit: None Procedures this Visit: None Allergies/Adverse Reactions: Allergies Allergy/AdvReac Type Severity Reaction Status Date / Time Sulfa (Sulfonamide Allergy Unknown Localized Verified 10/24/19 16:11 Antibiotics) Redness guaifenesin [From Entex LA] Allergy Verified 10/24/19 16:11 phenylephrine HCl Allergy Verified 10/24/19 16:11 [From Entex LA] phenylpropanolamine HCl Allergy Verified 10/24/19 16:11 [From Entex LA] Patient Problems: Current Active Problems Problem Status Onset Hypoxia Acute Weakness Acute Discharge Summary: Patient was admitted to observation care. Patient lab work consisting of a CBC and CMP was fairly normal. Patient blood sugar with elevated at 233. Patient is a known diabetic but has been treated with diet only recently. Patient did remained weak and needed assistance with all of her daily living cares. Patient did have a cystic lesion on her back that was becoming erythematous. The lesion was prepped with Betadine and was anesthetized 1% Xylocaine. a stab wound was made. Approximately 5 to 6 mL of purulent material was expressed along with some sebacium. Culture was taken. Patient was started on doxycycline 100 mg BID. Patient otherwise remain stable during her observation care. Patient was tra nsferred to [facility] for further fdc care and rehab services. - Final Diagnosis (1) Weakness Problems: Patient will be started on PT and OT part B medicare. It is hoped patient will be able to return to home. (2) Gastric outlet obstruction Problems: stable and doing well (3) History of Stroke Problems: stable (4) Diabetes type 2, controlled Problems: diet controlled (5) Seizure disorder Problems: stable
--- NOTE | 2019-10-26 07:51 | History and Physical Report ---
History of Present Illnes - History of Present Illness Reason for Visit: weakness History of Present Illness: Patient is a 79-year-old female who presented to the ED after she became weak and had a near fall experience. Patient has been with not able to get her back up. Patient has been getting weaker center last hospitalization and skilled stay for physical and occupational therapy. Patient spouse and family are question whether the patient can return home safely at this time. Patient is not had any fever or chills. Patient denies that she is had any news CVA symptoms. Patient does have a history of a tonic seizures to which is taking seizure medications. Patient denies that she has missed any of her seizure doses patient patient also had a history of a CVA but has recovered fairly well from that. Patient was admitted to observation care so that we could arrange for possible placement at a local [facility]. - Past Medical History Cardiac: CAD, [place], Hyperlipidemia, Other (completely occluded right carotid artery) Pulmonary: Pneumonia. denies: Asthma, Bronchitis, COPD, Pulmonary embolus DIRECTOR LOSS PREVENTION: CVA (left thalmus, right rao radiata, left frontal and parietal lobes), Seizure Gastrointestinal: GERD, Other (hiatal hernia) Heme/Onc: Anemia NOS Psych: Depression Musculoskeletal: Osteoarthritis, Other (previous history of DVT) Endocrine: Diabetes - Past Surgical History Past Surgical History: Hysterectomy, Other (AP bladder repair, ear surgery.) - Past Family History Mother Family History: Cancer (colon), Father Family History: (COPD) Sister 1 Family History: None (good health) Sister 2 Family History: None (good health) - Past Social History Smoke: No Occupation: retired Alcohol: None Drugs: None Lives: With Family Domestic Violence: Negative - Health Maintenance Health Maintenance: Cholesterol, Influenza Vaccine, Pneumococcal Vaccine Influenza Vaccine: Current for this Influenza Season Pneumonia Vaccine: Yes Resuscitation Status: Resusciation Status Resuscitation Status Do Not Resuscitate - Unable to Obtain History Unable to Obtain: No Review of Systems - Review of Systems Constitutional: Weakness, Malaise. negative: Fever, Chills, Sweats Eyes: negative: pain, conjunctivae inflammation, redness ENT: Other. negative: Ear Pain, Ear Discharge, Nose Pain, Nose Discharge, Nose Congestion, Mouth Pain, Mouth Swelling, Throat Pain Respiratory: SOB with Excertion (mild). negative: Cough, Dry, Shortness of Breath, Hemoptysis, Pleuritic Pain, Sputum, Wheezing Cardiovascular: negative: Chest Pain, Palpitations, Orthopnea, Paroxysmal Noc. Dyspnea, Edema, Light Headedness Gastrointestinal: negative: Nausea, Vomiting, Abdominal Pain, Diarrhea, Constipation, Melena, Hematochezia Genitourinary: Incontinence (occasional). negative: Dysuria, Frequency, Hematuria, Retention Musculoskeletal: negative: Neck Pain, Shoulder Pain, Arm Pain, Back Pain, Hand Pain Skin: negative: Rash Neurological: Weakness, Seizures. negative: Numbness, Incoordination, Change in Speech, Confusion - Medications/Allergies Allergies/Adverse Reactions: Allergies Allergy/AdvReac Type Severity Reaction Status Date / Time Sulfa (Sulfonamide Allergy Unknown Localized Verified 10/24/19 16:11 Antibiotics) Redness guaifenesin [From Entex [place]] Allergy Verified 10/24/19 16:11 phenylephrine HCl Allergy Verified 10/24/19 16:11 [From Entex LA] phenylpropanolamine HCl Allergy Verified 10/24/19 16:11 [From Entex [place]] Current Inpatient Medications: Current Inpatient Medications Acetaminophen (Tylenol) 650 mg PO Q6H PRN PRN Reason: Fever >101 Stop: 11/23/19 17:28 Clopidogrel Bisulfate (Plavix) 75 mg PO DAILY [facility] Stop: 11/24/19 08:59 Last Admin: 10/25/19 09:08 Dose: 75 mg Doxycycline Monohydrate (Vibramycin) 100 mg PO BID [facility] Stop: 11/24/19 20:59 Last Admin: 10/25/19 20:53 Dose: 100 mg Sodium Chloride (Normal Saline) 1,000 mls @ 100 mls/hr IV Q10H [facility] Stop: 11/23/19 17:29 Last Admin: 10/26/19 05:46 Dose: 100 mls/hr Levetiracetam (Keppra) 1,000 mg PO BID [facility] Stop: 11/23/19 20:59 Last Admin: 10/25/19 20:46 Dose: 1,000 mg Miscellaneous (Chem Sticks) 1 each MC CHEMQID [facility] Stop: 11/24/19 11:59 Last Admin: 10/26/19 05:47 Dose: 1 each Pantoprazole Sodium (Protonix) 40 mg PO 0700 [facility] Stop: 11/24/19 08:29 Last Admin: 10/26/19 05:46 Dose: 40 mg Pravastatin Sodium (Pravachol) 40 mg PO HS [facility] Stop: 11/23/19 20:59 Last Admin: 10/25/19 20:46 Dose: 40 mg Exam - Exam Vital Signs: Vital Signs (72 hours) 10/24/19 10/24/19 10/24/19 15:40 15:44 16:44 Temperature 97.1 F L Pulse Rate 98 H 87 Pulse Rate [ Left] Pulse Rate [ 92 H Right Pulse ox] Respiratory 21 Rate Blood Pressure 120/54 [Left Arm] Blood Pressure [Right Arm] O2 Sat by Pulse 95 Oximetry 10/24/19 10/24/19 10/24/19 17:00 17:15 17:26 Temperature 97.9 F Pulse Rate 81 Pulse Rate [ 84 Left] Pulse Rate [ 92 H Right Pulse ox] Respiratory 22 Rate Blood Pressure 150/67 [Left Arm] Blood Pressure [Right Arm] O2 Sat by Pulse 99 99 Oximetry 10/24/19 10/24/19 10/24/19 17:39 17:46 18:00 Temperature 97.9 F 97.9 F 97.9 F Pulse Rate Pulse Rate [ 84 84 84 Left] Pulse Rate [ 92 H 92 H Right Pulse ox] Respiratory 22 22 22 Rate Blood Pressure 150/67 150/67 150/67 [Left Arm] Blood Pressure 119/49 [Right Arm] O2 Sat by Pulse 99 99 99 Oximetry 10/24/19 10/24/19 10/24/19 20:35 21:04 21:42 Temperature Pulse Rate 80 80 Pulse Rate [ Left] Pulse Rate [ Right Pulse ox] Respiratory Rate Blood Pressure [Left Arm] Blood Pressure [Right Arm] O2 Sat by Pulse 99 Oximetry 10/24/19 10/24/19 10/25/19 21:44 21:51 00:00 Temperature 97.7 F Pulse Rate 76 Pulse Rate [ 84 75 Left] Pulse Rate [ 92 H Right Pulse ox] Respiratory 16 16 Rate Blood Pressure 130/67 [Left Arm] Blood Pressure [Right Arm] O2 Sat by Pulse 98 Oximetry 10/25/19 10/25/19 10/25/19 01:00 01:49 01:50 Temperature 98.1 F Pulse Rate 81 Pulse Rate [ 78 78 Left] Pulse Rate [ 92 H Right Pulse ox] Respiratory 16 16 Rate Blood Pressure 142/71 [Left Arm] Blood Pressure [Right Arm] O2 Sat by Pulse 98 100 Oximetry 10/25/19 10/25/19 10/25/19 04:00 05:00 05:14 Temperature 97.6 F Pulse Rate 80 Pulse Rate [ 93 H Left] Pulse Rate [ Right Pulse ox] Respiratory 16 Rate Blood Pressure 142/79 [Left Arm] Blood Pressure [Right Arm] O2 Sat by Pulse 97 97 Oximetry 10/25/19 10/25/19 10/25/19 06:00 08:00 08:51 Temperature 97.6 F Pulse Rate 75 83 Pulse Rate [ 93 H 87 Left] Pulse Rate [ 92 H Right Pulse ox] Respiratory 16 20 Rate Blood Pressure 127/55 [Left Arm] Blood Pressure [Right Arm] O2 Sat by Pulse 96 Oximetry 10/25/19 10/25/19 10/25/19 09:00 09:40 11:43 Temperature Pulse Rate 88 95 H Pulse Rate [ Left] Pulse Rate [ Right Pulse ox] Respiratory Rate Blood Pressure [Left Arm] Blood Pressure [Right Arm] O2 Sat by Pulse 96 Oximetry 10/25/19 10/25/19 10/25/19 12:42 13:32 13:48 Temperature 98.6 F Pulse Rate 89 Pulse Rate [ 92 H Left] Pulse Rate [ Right Pulse ox] Respiratory 20 Rate Blood Pressure 136/59 [Left Arm] Blood Pressure [Right Arm] O2 Sat by Pulse 95 94 Oximetry 10/25/19 10/25/19 10/25/19 15:48 17:00 17:54 Temperature Pulse Rate 88 91 H Pulse Rate [ Left] Pulse Rate [ Right Pulse ox] Respiratory Rate Blood Pressure [Left Arm] Blood Pressure [Right Arm] O2 Sat by Pulse 99 Oximetry 10/25/19 10/25/19 10/25/19 18:00 19:55 21:00 Temperature 99.7 F H Pulse Rate 87 Pulse Rate [ 94 H Left] Pulse Rate [ Right Pulse ox] Respiratory 20 Rate Blood Pressure 160/91 [Left Arm] Blood Pressure [Right Arm] O2 Sat by Pulse 96 96 Oximetry 10/25/19 10/25/19 10/25/19 21:25 21:54 22:00 Temperature 97.7 F Pulse Rate 87 Pulse Rate [ 86 86 Left] Pulse Rate [ 92 H Right Pulse ox] Respiratory 20 20 Rate Blood Pressure 139/70 [Left Arm] Blood Pressure [Right Arm] O2 Sat by Pulse 91 L Oximetry 10/26/19 10/26/19 10/26/19 00:00 01:00 02:00 Temperature 97.1 F L Pulse Rate 87 84 Pulse Rate [ 80 Left] Pulse Rate [ 92 H Right Pulse ox] Respiratory 20 Rate Blood Pressure 157/73 [Left Arm] Blood Pressure [Right Arm] O2 Sat by Pulse 91 L 93 Oximetry 10/26/19 10/26/19 10/26/19 04:00 05:00 05:52 Temperature 97.3 F L Pulse Rate 96 H Pulse Rate [ 105 H Left] Pulse Rate [ Right Pulse ox] Respiratory 20 Rate Blood Pressure 163/91 [Left Arm] Blood Pressure [Right Arm] O2 Sat by Pulse 93 94 Oximetry 10/26/19 05:58 Temperature Pulse Rate 114 H Pulse Rate [ 105 H Left] Pulse Rate [ 92 H Right Pulse ox] Respiratory 20 Rate Blood Pressure [Left Arm] Blood Pressure [Right Arm] O2 Sat by Pulse Oximetry General: Alert, Oriented to Person, Oriented to Place, Oriented to Time, Cooperative, Mild distress HEENT: Atraumatic, PERRLA, EOMI, Mouth Mucous membr. moist/Renick, Nose Mucous membr. moist/Renick Neck: Normal Range of Motion Carotids: WNL Thyroid: WNL Lungs: Clear to auscultation, Normal air movement, Speaks full Sentences Cardiovascular: Regular rate, Normal S1, Normal S2, No murmurs Abdomen: Normal bowel sounds, Soft, No tenderness, No hepatospenomegaly, No masses Integumentary: Normal, Renick, Warm, Dry Extremities: No clubbing, No cyanosis, No edema, Normal pulses, No tenderness/swelling Neurological: Normal gait, Normal speech, Strength Equal Bilat, Normal tone, Sensation intact, Cranial nerves 3-12 NL, Reflexes 2+, Right Sided Weakness (at baseline) Psych/Mental Status: Mood NL, Appropriate Affect, Intact Judgment. No: Mental status NL (mild ocnfusion) - Laboratory Results Laboratory Results: Laboratory Results 10/24/19 10/24/19 10/24/19 15:44 15:44 15:46 WBC 6.50 RBC 3.67 L Hgb 11.4 L Hct 32.9 L MCV 90.0 MCH 31.0 MCHC 34.5 RDW 11.0 L Plt Count 238 Neut % (Auto) 69.9 Lymph % (Auto) 22.6 [place] % (Auto) 3.6 Eos % (Auto) 3.5 Baso % (Auto) 0.4 Neut # (Auto) 4.6 Lymph # (Auto) 1.5 [place] # (Auto) 0.2 Eos # (Auto) 0.2 Baso # (Auto) 0.0 Sodium 142 Potassium 3.4 L Chloride 103 Carbon Dioxide 24 Anion Gap 18.4 BUN 26 H Creatinine 0.90 Estimated Creat Clear 31 Est GFR ( Amer) > 60 Est GFR (Non-Af Amer) > 60 Glucose 233 H Calcium 9.5 Total Bilirubin 0.6 AST 31 ALT 16 Alkaline Phosphatase 96 Total Protein 7.3 Albumin 4.0 Urine Color Yellow Urine Appearance Cloudy H Urine pH 6.0 Ur Specific [place] 1.025 Urine Protein 2+ H Urine Ketones Negative Urine Occult Blood Trace Urine Nitrite Negative Urine Bilirubin 1+ H Urine Urobilinogen 1.0 Ur Leukocyte Esterase Trace H Urine Glucose Negative Assessment/Plan - Assessment/Plan (1) Weakness Status: Acute Current Visit: Yes (2) Gastric outlet obstruction Status: Chronic Current Visit: No (3) History of Stroke Status: Chronic Current Visit: No (4) Diabetes type 2, controlled Status: Chronic Current Visit: No Qualifiers: Diabetes mellitus gauge controller insulin use: without correction use Diabetes mellitus complication status: without complication Qualified Code(s): E11.9 - Type 2 diabetes mellitus without complications (5) Seizure disorder Status: Chronic Current Visit: No VTE Assessment - RISK FACTOR SCORE VTE RISK FACTOR SCORES: AGE OVER 60 YEARS, ANTICIPATED BED CONFINEMENT OR IMMOBILIZATION > 24 HOURS - RISK VTE MODERATE RISK: SCORE OF 2 (RISK PROXIMAL DVT 2-4%) PROPHYAXIS NEEDED
[2019-10-26] MEDS: levETIRAcetam 500 MG TABLET PO SCH (08:46)
[2019-10-26] MEDS: CLOPIDOGREL BISULFATE 75 MG TABLET PO SCH (08:46)
[2019-10-26] MEDS: DOXYCYCLINE 100 MG CAPSULE PO SCH (08:46)
[2019-10-26 10:09] VITALS: BP 154/98
== END 2019-10-26 10:25 ==
LOC: ED 15:40 → SOUTH 17:18
PROVIDERS: ADMIT Family Medicine; ATTEND Family Medicine
DX: K31.1 Adult hypertrophic pyloric stenosis (principal); E11.9 Type 2 diabetes mellitus without complications; G40.909 Epilepsy, unspecified, not intractable, without status epilepticus; Z86.73 Personal history of transient ischemic attack (TIA), and cerebral infarction without residual deficits
CPT/HCPCS: 36415; 51701; 70450; 80053; 81002; 85025; 87070; 99218; 99282; 99283; G0378; J7030; S1016